=== PATIENT | female | born 1995 | race Hispanic/Latino ===

== ENCOUNTER 2024-05-08 12:00 | Inpatient (IN) | payer MEDICAID, OTHER, SELFPAY ==
[2024-05-08 11:29] LABS: Hematocrit 36.4 % (34.9-44.5); Hemoglobin 12.2 g/dL (12.0-15.5); Platelet Count 262 10x3/uL (150-450)
[2024-05-08 11:48] LABS: Hep B Surf Ag Non-Reactive S/CO (NonReactive)
[2024-05-08 11:48] LABS: Syphilis Antibody Nonreactive (Nonreactive); Syphilis Antibody Index 0.03 S/CO (<1.00 Non-Reactive)
[2024-05-11 06:02] VITALS: BMI 35.2
[2024-05-11] MEDS ORDERED: Promethazine HCl 25 MG/ML VIAL IM PRN ×3 (06:08→10:43)
[2024-05-11] MEDS ORDERED: Diphenoxylate HCl/Atropine Tablet PO PRN (06:08)
[2024-05-11] MEDS ORDERED: fentaNYL 50 mcg/mL 1 mL Vial SLOW IVP PRN ×2 (06:08→08:34)
[2024-05-11] MEDS ORDERED: hydrALAZINE 20 MG/ML VIAL SLOW IVP PRN ×2 (06:08→10:43)
[2024-05-11] MEDS ORDERED: Oxytocin 30 units/NS 500 ML 500 ML IV SCH (06:08)
[2024-05-11] MEDS ORDERED: Misoprostol 200 MCG TAB PR PRN (06:08)
[2024-05-11] MEDS ORDERED: Tranexamic Acid 1,000 MG/10 ML VIAL IVP PRN (06:08)
[2024-05-11] MEDS ORDERED: Famotidine/PF 20 mg/2ml Vial SLOW IVP PRN (06:08)
[2024-05-11] MEDS ORDERED: Acetaminophen 500 MG TAB PO PRN (06:08)
[2024-05-11] MEDS ORDERED: Ondansetron PF 4 MG/2 ML Vial IVP PRN ×3 (06:08→08:34)
[2024-05-11] MEDS ORDERED: Carboprost 250 MCG/ML AMP IM PRN (06:08)
[2024-05-11] MEDS ORDERED: Bicitra 30 ML UDCUP PO PRN (06:08)
[2024-05-11] MEDS ORDERED: Methylergonovine 0.2 MG/ML VIAL IM PRN (06:08)
[2024-05-11] MEDS: Lactated Ringer's 1,000 ML IV SCH (07:19)
[2024-05-11] MEDS: CEFAZOLIN 2 GM in Sodium Chloride 0.9% 100 ML IVPB SCH (07:20)
[2024-05-11] MEDS ORDERED: diphenhydrAMINE 50 MG/ML VIAL IVP PRN (08:34)
[2024-05-11] MEDS ORDERED: Naloxone HCl 0.4 mg/ml Vial IV PRN (08:34)
[2024-05-11] MEDS ORDERED: Meperidine HCl/PF 25 MG (1 mL) VIAL SLOW IVP PRN (08:34)
[2024-05-11] MEDS ORDERED: Moisturizing Cream (Eucerin) 113 GM JAR TOP PRN (08:34)
[2024-05-11] MEDS ORDERED: Naloxone HCl 0.4 mg/ml Vial IVP PRN ×2 (08:34)
[2024-05-11] MEDS ORDERED: Communication Order-Pharmacy FS SCH (08:45)
[2024-05-11] MEDS: Dexmedetomidine 200 MCG/2 ML VIAL ONE (09:28)
[2024-05-11] MEDS: Morphine PF 10 MG/10 ML VIAL ONE (09:31)
[2024-05-11] MEDS: Oxytocin 10 UNITS/ML VIAL ONE (09:31)
[2024-05-11] MEDS: Phenylephrine 10 MG/ML VIAL ONE (09:31)
[2024-05-11] MEDS: Sterile Water 10 ML ONE (09:31)
[2024-05-11] MEDS: Ondansetron PF 4 MG/2 ML Vial ONE (09:32)
[2024-05-11] MEDS: Dexamethasone 10 MG/ML VIAL ONE (09:32)
[2024-05-11] MEDS: Ketorolac Tromethamine 30 MG (1 mL) VIAL ONE (09:32)
[2024-05-11] MEDS: Midazolam HCl 2 mg/2 ml Vial ONE (09:32)
[2024-05-11] MEDS ORDERED: diphenhydrAMINE 25 MG CAP PO PRN (10:43)
[2024-05-11] MEDS ORDERED: Boostrix 0.5 ML (Tdap) VIAL (>/=7 yrs of age) IM ONE (10:43)
[2024-05-11] MEDS ORDERED: Lanolin Ointment 7 GM TUBE TOP PRN (10:43)
[2024-05-11] MEDS ORDERED: Meperidine HCl/PF 25 MG (1 mL) VIAL IM PRN (10:43)
[2024-05-11] MEDS ORDERED: Simethicone Chewable 80 MG TAB PO PRN (10:43)
[2024-05-11] MEDS ORDERED: Bisacodyl 10 MG SUPP PR PRN (10:43)
[2024-05-11] MEDS: Ketorolac Tromethamine 30 MG (1 mL) VIAL IVP SCH (13:03)
[2024-05-11] MEDS: Ondansetron PF 4 MG/2 ML Vial IVP PRN (13:03)
[2024-05-11] MEDS: Docusate 100 MG CAP PO SCH (21:08)
[2024-05-11] MEDS: Ferrous Sulfate 325 MG TAB PO SCH (21:11)
[2024-05-12 05:13] LABS: Hemoglobin 9.9 g/dL (12.0-15.5); Mean Corpuscular Hemoglobin 30.4 pg (27.0-33.0); Mean Platelet Volume 9.2 fL (7.4-10.4); Platelet Count 254 10x3/uL (150-450); RBC Distribution Width 13.6 % (11.5-14.5); Red Blood Cell (RBC) Count 3.26 10x6/uL (3.90-5.03)
[2024-05-12] MEDS: Prenatal Vitamin 1 TAB PO SCH (08:32)
[2024-05-12] MEDS: HYDROcodone/Acetaminophen 5/325 mg Tablet PO PRN (11:24)
[2024-05-12] MEDS: Ibuprofen 800 MG TAB PO SCH (14:06)
[2024-05-13 12:43] VITALS: BP 114/65; TEMP 98.4
== END 2024-05-13 21:00 | disposition home or self-care (01) | DRG 788 ==
LOC: CSHLD 05-11 05:33 → CSHPP 05-11 11:05
PROVIDERS: ADMIT Family Medicine; ATTEND Family Medicine
PROC: 10D00Z1 Extraction of Products of Conception, Low, Open Approach (ICD-10-PCS; principal; 2024-05-11)
DX: O34.211 Maternal care for low transverse scar from previous cesarean delivery (principal); Z3A.39 39 weeks gestation of pregnancy; Z37.0 Single live birth
CPT/HCPCS: 36415; 51702; 85014; 85018; 85027; 85049; 86780; 86850; 86900; 86901; 87340; J1100; J1885; J2250; J2274; J2371; J2405; J2590; J7120